=== PATIENT | male | born 2000 | race Caucasian/White ===

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

== ENCOUNTER → 2019-10-07 | Outpatient (CLI) | payer BC, OTHER ==
--- NOTE | 2019-10-10 07:35 | MRI ---
EXAM DESCRIPTION: Left shoulder CLINICAL HISTORY: Shoulder subluxation. Injury one year ago. Shoulder pain COMPARISON: None. TECHNIQUE: Multiplanar, multisequence MR images of the left shoulder FINDINGS: Sequela of previous remote anterior subcoracoid shoulder dislocation. Shallow Hill-Sachs impaction fracture. No edema to diagnose an acute injury Blunted anterior inferior labrum. Thickened adjacent anterior band inferior glenohumeral ligament coronal image 8, axial image 7. No acute labral tear. No evidence of previous osseous Bankart lesion. No chondral defect of the glenoid or humeral head. Physiologic joint fluid Minimal acromioclavicular osteoarthritis. Mild anterior lateral downsloping of the acromion. Supraspinatus and infraspinatus tendons are normal. Normal muscle volumes and signal Teres minor tendon and muscle are normal. Subscapularis tendon intact. Normal muscle volume and signal Long head biceps tendon normal in the bicipital groove and intra-articular. Labral anchor intact. Superior and posterior labrum are normal IMPRESSION: Sequela of previous remote anterior subcoracoid shoulder dislocation. Remote shallow Hill-Sachs impaction fracture. Consider MR arthrography for a better evaluation of the anterior inferior labrum if there are symptoms of instability. Blunted anterior inferior labrum likely remote injury Electronically signed by: Andi Zaragoza MD 10/10/2019 7:33 AM CDT
== END ==
LOC: MRI 09:28
PROVIDERS: ATTEND Family Medicine
DX: S43.012S Anterior subluxation of left humerus, sequela (principal); S42.202A Unspecified fracture of upper end of left humerus, initial encounter for closed fracture